=== PATIENT | female | born 1985 | race Caucasian/White ===

== ENCOUNTER 2017-01-28 12:11 | Observation (INO) ==
--- NOTE | 2017-01-28 12:41 | Emergency Department Note ---
Disposition Clinical Impression: Syncope Qualifiers: Syncope type: unspecified Qualified Code(s): R55 - Syncope and collapse Disposition: Admitted As Inpatient Condition: Fair Referrals: Jaycee Rios ELECTRIC MOTOR REPAIR SUPERVISOR [Primary Care Provider] - Forms: ED Satisfaction Letter Time of Disposition: 14:05 Neuro HPI - General Chief Complaint: ED Neuro Symptoms/Deficit Stated Complaint: Slurred speech, R side facial droop Time Seen by Provider: 01/28/17 12:22 Source: patient Mode of arrival: ambulatory Limitations: no limitations Nursing Notes Reviewed: Yes Vital Signs Reviewed: Yes - History of Present Illness HPI Narrative: 31-year-old female who comes in states over the last 2 weeks she's had several episodes of syncope. She's had some intermittent right sided facial weakness and has had some unstable gait. She states that she's had some slurring of her speech intermittently also. Onset of Symptoms Date: 01/14/17 Onset of Symptoms Time: 09:00 Location: speech, right face Severity: now resolved Quality: weakness Symptoms Improving: Yes Context: other (Intermittent symptoms) Associated symptoms: Reports: denies other symptoms Treatments Prior to Arrival: none - Related Data Allergies/Adverse Reactions: Allergies Allergy/AdvReac Type Severity Reaction Status Date / Time aspirin AdvReac See Verified 06/25/16 09:33 Comments ibuprofen AdvReac See Verified 06/25/16 09:33 Comments All systems ED: reviewed and negative except as stated. Constitutional: Denies: fever, chills, weakness, weight change Eyes: Denies: eye pain, eye discharge, vision change ENT ED: Denies: ear pain, throat pain, dental pain, hearing loss, epistaxis, congestion, dysphagia Cardiovascular: Denies: chest pain, palpitations, dyspnea on exertion, edema, syncope Respiratory: Denies: cough, dyspnea, wheezes, hemoptysis, stridor Gastrointestinal: Denies: abdominal pain, nausea, vomiting, diarrhea, constipation, hematemesis, melena, hematochezia Genitourinary: Denies: dysuria, frequency, hematuria, discharge Musculoskeletal: Denies: back pain, neck pain, arthralgia, myalgia Integumentary: Denies: rash, abrasion, lesions Neurological: Reports: weakness, abnormal gait. Denies: headache, numbness, paresthesias, confusion, vertigo Psychiatric: Denies: anxiety, depression, suicidal thoughts, homicidal thoughts , auditory hallucinations, visual hallucinations Endocrine: Denies: fatigue Hematological/Lymphatic: Denies: easy bleeding, easy bruising Allergic/Immunologic: Denies: facial swelling, urticaria Past Medical History - Past Medical History Medical history: Reports: asthma Psychiatric history: Reports: anxiety, PTSD - Social History Smoking Status: Current every day smoker Smokeless Tobacco Status: No Alcohol use: Reports: rarely Drug use: Reports: none Physical Exam - General Limitations: no limitations General appearance: alert, in no apparent distress - Head Head exam: atraumatic, normocephalic, normal inspection - Eye Eye exam: Present: normal appearance, PERRL, EOMI - ENT ENT exam: normal exam, normal oropharynx, mucous membranes moist - Neck Neck exam: Present: normal inspection, full ROM, trachea midline - Respiratory Respiratory exam: Present: normal lung sounds bilaterally - Cardiovascular Cardiovascular exam: Present: regular rate, normal rhythm, normal heart sounds - Abdominal Exam Abdominal exam: Present: soft, Non-Tender. Absent: tenderness, distention, guarding, rebound, rigidity - Extremities Exam Extremities exam: Present: normal inspection, full ROM. Absent: tenderness, pedal edema - Expanded Lower Extremity Exam Neurovascular/Tendon exam: Absent: motor deficit, sensory deficit, tendon deficit Gait: observed and normal - Back Exam Back exam: Present: normal inspection, full ROM. Absent: tenderness - Neurological Exam Neurological exam: Present: alert, oriented X3 - Psychiatric Psychiatric exam: Present: normal affect, normal mood - Skin Skin exam: Present: warm, dry, intact, normal color Course - Reevaluation(s) Reevaluation #1: 31-year-old with episodes of syncope versus seizure, approximately 10 episodes in the last couple of weeks. Patient saw her family doctor today and he sent her in for evaluation. Has had intermittent facial numbness and weakness. Time: 14:05 - Consultations Consultation #1: Discussed with manjit Jimenez. Time: 14:03 Vital Signs Temperature 97.6 F 01/28/17 12:12 Pulse Rate 89 01/28/17 12:12 Respiratory Rate 16 01/28/17 12:12 Blood Pressure 134/91 01/28/17 12:12 O2 Sat by Pulse Oximetry 98 01/28/17 12:12 Temperature 97.6 F 01/28/17 12:12 Pulse Rate 75 01/28/17 13:07 Respiratory Rate 16 01/28/17 13:07 Blood Pressure 108/68 01/28/17 13:07 O2 Sat by Pulse Oximetry 98 01/28/17 13:07 Oxygen Delivery Oxygen Delivery Room Air Neuro Symptoms/Deficit - Lab Data Lab results reviewed: Yes I reviewed the patient's lab results. Result diagrams: 01/28/17 12:34 01/28/17 12:34 Lab Results 01/28/17 01/28/17 01/28/17 Range/Units 12:19 12:34 12:34 WBC 7.8 (4.3-11.1) K/mcL RBC 4.32 (3.82-4.97) M/mcL Hgb 13.6 (11.5-15.4) g/dL Hct 40.9 (35.3-44.9) % MCV 94.7 (83.0-100.0) fL MCH 31.5 (28.0-33.3) pg MCHC 33.3 (31.6-35.5) g/dL RDW 14.0 (11.5-14.5) % Plt Count 237 (140-400) K/mcL MPV 10.1 (9.4-12.4) fL Immature Gran % 0.4 (0-4) % Seg Neutrophils % 52.5 % Lymphocytes % 39.5 % Monocytes % 5.7 % Eosinophils % 1.5 % Basophils % 0.4 % Neutrophils # 4.1 (1.6-8.9) K/mcL Lymphocytes # 3.1 (0.6-4.6) K/mcL Monocytes # 0.5 (0.0-1.3) K/mcL Eosinophils # 0.1 (0.0-0.6) K/mcL Basophils # 0.0 (0.0-0.2) K/mcL PT 11.0 (9.4-12.1) Seconds INR 1.0 APTT 31.7 (26.0-36.0) Seconds Sodium (136-145) mEq/L Potassium (3.5-4.5) mEq/L Chloride (98-109) mEq/L Carbon Dioxide (19-29) mEq/L BUN (7-20) mg/dL Creatinine (0.57-1.11) mg/dL Est GFR ( Amer) (> 60) Est GFR (Non-Af Amer) (> 60) BUN/Creatinine Ratio (6-26) Glucose (70-99) mg/dL POC Glucose 71 (58-89) Calculated Osmolality (280-300) Calcium (8.6-10.8) mg/dL Troponin I (0-0.03) ng/mL 01/28/17 01/28/17 Range/Units 12:34 12:34 WBC (4.3-11.1) K/mcL RBC (3.82-4.97) M/mcL Hgb (11.5-15.4) g/dL Hct (35.3-44.9) % MCV (83.0-100.0) fL MCH (28.0-33.3) pg MCHC (31.6-35.5) g/dL RDW (11.5-14.5) % Plt Count (140-400) K/mcL MPV (9.4-12.4) fL Immature Gran % (0-4) % Seg Neutrophils % % Lymphocytes % % Monocytes % % Eosinophils % % Basophils % % Neutrophils # (1.6-8.9) K/mcL Lymphocytes # (0.6-4.6) K/mcL Monocytes # (0.0-1.3) K/mcL Eosinophils # (0.0-0.6) K/mcL Basophils # (0.0-0.2) K/mcL PT (9.4-12.1) Seconds INR APTT (26.0-36.0) Seconds Sodium 142 (136-145) mEq/L Potassium 4.4 (3.5-4.5) mEq/L Chloride 108 (98-109) mEq/L Carbon Dioxide 24 (19-29) mEq/L BUN 12 (7-20) mg/dL Creatinine 0.68 (0.57-1.11) mg/dL Est GFR ( Amer) > 60 (> 60) Est GFR (Non-Af Amer) > 60 (> 60) BUN/Creatinine Ratio 18 (6-26) Glucose 85 (70-99) mg/dL POC Glucose (58-89) Calculated Osmolality 293 (280-300) Calcium 8.9 (8.6-10.8) mg/dL Troponin I 0.00 (0-0.03) ng/mL - Radiology Data Radiology results reviewed: Yes I reviewed the patient's radiology results. Chest X-Ray 01/28/17 12:32 IMPRESSION: 1. No acute radiographic finding in the chest. D/ / Carmelo Jackson MD / Carmelo Jackson MD Interpreting Provider: Carmelo Jackson MD Head CT 01/28/17 12:32 IMPRESSION: No acute intracranial abnormality. D/ / Isa Fink MD / Isa Fink MD Interpreting Provider: Isa Fink MD - EKG Data EKG attestation: Yes I reviewed and interpreted this EKG. EKG shows normal: sinus rhythm Rate: normal Rhythm: NSR Interpretation: no acute changes NIH Stroke Scale - Level of Consciousness LOC: Alert - LOC Questions LOC Questions: Answers both correctly - LOC Commands LOC Commands: Performs both correctly - Best Gaze Best Gaze: Normal - Visual Visual: No visual loss - Facial Palsy Facial Palsy: Normal - Motor Arms Motor Arm-Left: No drift for 10 seconds Motor Arm-Right: No drift for 10 seconds - Motor Legs Motor Leg-Left: No drift for 5 seconds Motor Leg-Right: No drift for 5 seconds - Limb Ataxia Limb Ataxia: Normal, No Ataxia - Sensory Sensory: Normal - Best Language Best Language: No aphasia - Dysarthria Dysarthria: Normal - Extinction and Inattention Extinction and Inattention: Normal - NIHSS Total Score NIHSS Total Score: 0 TPA Checklist - Eligibilty for IV tPA 1. LKW equal to or less than 4.5 hours be before treatment: No - LKW: 3-4.5 hrs Add. Contraindications Patient/family understanding: The patient/family members have been counseled and understood the risk, benefit , and alternatives of treatment.
[2017-01-28 12:49] LABS: Basophils % 0.4 %; Eosinophils # 0.1 K/mcL (0.0-0.6); Eosinophils % 1.5 %; Hematocrit 40.9 % (35.3-44.9); Hemoglobin 13.6 g/dL (11.5-15.4); Immature Granulocytes % 0.4 % (0-4); Lymphocytes # 3.1 K/mcL (0.6-4.6); Lymphocytes % 39.5 %; Mean Corpuscular HGB Conc 33.3 g/dL (31.6-35.5); Mean Corpuscular Hemoglobin 31.5 pg (28.0-33.3); Mean Corpuscular Volume 94.7 fL (83.0-100.0); Mean Platelet Volume 10.1 fL (9.4-12.4); Monocytes # 0.5 K/mcL (0.0-1.3); Monocytes % 5.7 %; Neutrophils # 4.1 K/mcL (1.6-8.9); Platelet Count 237 K/mcL (140-400); Red Blood Count 4.32 M/mcL (3.82-4.97); Segmented Neutrophils % 52.5 %
[2017-01-28 12:51] LABS: Activated Partial Thrombo Time 31.7 Seconds (26.0-36.0)
[2017-01-28 12:58] LABS: BUN/Creatinine Ratio 18 (6-26); Blood Urea Nitrogen 12 mg/dL (7-20); Calcium 8.9 mg/dL (8.6-10.8); Carbon Dioxide 24 mEq/L (19-29); Chloride 108 mEq/L (98-109); Glucose 85 mg/dL (70-99); Osmolality,Calculated 293 (280-300); Potassium 4.4 mEq/L (3.5-4.5); Sodium 142 mEq/L (136-145); eGFR For African Americans > 60 (> 60); eGFR For Non-African Americans > 60 (> 60)
--- NOTE | 2017-01-28 14:59 | Internal Med History&Physical ---
<Luna Andrews Santa - Last Filed: 01/28/17 14:54> Date of Encounter: 01/28/17 Time of Encounter: 14:30 Assessment and Plan (1) Syncope Current visit: Yes Status: Acute Patient reports 2 week history of right facial droop, right facial numbness, "black spots in my memory", slurred speech daily, right chest tightness, shortness of breath, and right arm pain daily. Patient states that she normally has the above-mentioned symptoms along with a headache prior to syncopal episode. Patient states that she was recently admitted to [facility] in [facility] for 3 days. She is unsure of what her diagnosis was, however her boyfriend states that it had something to do with a seizure. She says that she was not placed on any new medications and did not have a follow-up appointment. Both head CT and chest x-ray from the emergency department are negative for any acute findings. All of her labs are within normal limits. Her EKG in the emergency department is normal sinus rhythm with a rate of 80. No signs of ischemia. Patient states that she had an echocardiogram at her recent admission and [facility]. I have requested records be obtained by the ER decontamination technician. [employer] labs in the morning Vital signs every shift Up with assist Neuro checks MRI Carotid Dopplers in the morning Review records from [facility]. Qualifiers: Syncope type: unspecified Qualified Code(s): R55 - Syncope and collapse (2) PTSD (post-traumatic stress disorder) Current visit: Yes Status: Chronic Chronic. Continue medications. (3) Anxiety Current visit: Yes Status: Chronic Chronic. Continue Klonopin and Prozac. (4) Depression Current visit: Yes Status: Chronic Chronic. Continue Klonopin and Prozac. Qualifiers: Depression Type: unspecified Qualified Code(s): F32.9 - Major depressive disorder, single episode, unspecified (5) Chest pain Current visit: Yes Status: Acute Patient reports that she has right chest tightness, shortness of breath, radiation to the right arm for the last 2 weeks. She says that this is all accompanied by the neurological symptoms that she is having about and headaches. She was admitted to [facility] recently and had an echocardiogram. We are waiting on results to be obtained from [facility]. He also reports that she had [place] [facility] 5 [place]. She said during the test she had 8/10 chest pressure and had an LHC at the same time. She did not have any stents. EKG is normal sinus rhythm without signs of ischemia. Rate is 80. She denies chest pain currently. S1-S2, regular rate and rhythm. No peripheral edema. Troponin was negative in the ER. Telemetry Echo results from [facility] symptoms Qualifiers: Chest pain type: unspecified Qualified Code(s): R07.9 - Chest pain, unspecified (6) Morbid obesity Current visit: Yes Status: Chronic Lifestyle changes. Chronic Qualifiers: Obesity type: due to excess calories Qualified Code(s): E66.01 - Morbid ( severe) obesity due to excess calories (7) Dizziness Current visit: Yes Status: Acute Patient reports 2 week history of dizziness along with the above-mentioned chest pain, headache, and neurological symptoms. Plan as above (8) Headache Current visit: Yes Status: Acute Patient reports that she has headaches about every 3-4 days, depending on her stress. She says that she has left posterior neck pain, radiates up over the top of her head to the frontal area. She said after this she begins having the right facial droop, right facial numbness, memory lapses, and slurred speech. She is neurologically intact. Pupils equal reactive round, grasps are equal, facial movement is symmetrical, strength against resistance is strong and normal. This is most likely an atypical migraine. She denies nausea or vomiting or vision changes with this. Patient had a head CT in the emergency department was negative. Neuro checks MRI in the morning Monitor labs Monitor vital signs Symptomatic treatment. Qualifiers: Headache type: unspecified Headache chronicity pattern: acute headache Intractability: not intractable Qualified Code(s): R51 - Headache (9) DVT prophylaxis Current visit: Yes Status: Acute Lovenox subcutaneous Internal Medicine - H&P: HPI Chief complaint: syncope Admitted From: Home Plans for Post Hospital Care: Home History of present illness: Ms. Peng is a 31 year old female with history of anxiety and depression, PTSD , prior LHC. She presents to the emergency department today with complaint of right facial droop, right facial numbness, "black spots in my memory", left posterior neck pain with headache, slurred speech, dizziness, right chest tightness, shortness of breath, and right arm pain for the last 2 weeks. She was seen at [facility] and admitted for 3 days for these symptoms. She is unsure of what her diagnosis was, however, she says her boyfriend says that it had to do with seizures. She states that she was not put on any new medications and was not instructed to follow-up with anyone. She does take Klonopin and Prozac daily. She is stable at this time and asymptomatic. She is neurologically intact and her speech is clear. Past Med Surg Social Fam HX - Past Medical History Medical history: asthma Psychiatric history: anxiety, PTSD - Social History Smoking Status: Current every day smoker Packs per day: 0.5 Smokeless Tobacco Status: No Alcohol use: rarely Drug use: none Activity Level: Independent ambulation Recent Out of Country Travel Within the Last 8 Weeks: No Exposure or Possible Exposure to Illness During Travel: No Internal Medicine - H&P: Meds FLUoxetine HCl [Prozac] 80 mg PO DAILY 01/28/17 [History] Melatonin [Melatin] 3 mg PO HS 01/28/17 [History] clonazePAM [Klonopin] 1 tab PO TID 01/28/17 [History] Allergies aspirin Adverse Reaction (Verified 01/28/17 14:22) Difficulty Breathing ibuprofen Adverse Reaction (Verified 01/28/17 14:22) Difficulty Breathing All Systems PM: A 10-system review of systems was performed and is negative for pertinent findings except as documented above in the HPI. - Constitutional Constitutional: no chills, no fever(s) - EENT Eyes: no change in vision, no loss of vision, no photophobia, no spots in vision - Cardiovascular Cardiovascular ROS IM: chest pain, dyspnea, lightheadedness, syncope - Respiratory Respiratory: dyspnea, no chest congestion, no pain with cough - Gastrointestinal Gastrointestinal: nausea, no abdominal pain, no change in bowel habits, no diarrhea, no vomiting - Genitourinary Genitourinary: no dysuria, no urinary frequency, no urinary urgency - Musculoskeletal Musculoskeletal ROS IM: neck pain, numbness, tingling - Integumentary Integumentary IM: no rash - Neurological Neurological ROS: dizziness, headache(s), memory loss - Psychiatric Psychiatric: anxiety, depression, no homicidal ideation, no suicidal ideation - Constitutional Vitals: Temp Pulse Resp BP Pulse Ox 97.6 F 64 16 109/80 98 01/28/17 12:12 01/28/17 14:14 01/28/17 14:14 01/28/17 14:14 01/28/17 14:14 General appearance: Present: A&O X 3, morbidly obese, pleasant, answers questions appropriately - Head Head exam: Present: normal inspection - Eye Eye exam: Present: normal appearance, PERRL, conjuntiva pink. Absent: nystagmus - ENT ENT exam: Present: mucous membranes moist, normal exam, normal external ear exam - Neck Neck exam general surgery: Present: normal inspection. Absent: lymphadenopathy , tenderness - Respiratory Respiratory exam: Present: CTAB. Absent: chest wall tenderness, rales, respiratory distress, rhonchi, wheezes - Cardiovascular Cardiovascular exam: Present: RRR, +S1, +S2. Absent: diastolic murmur, systolic murmur - GI/Abdominal GI/Abdominal exam: Present: distended, normal bowel sounds, soft. Absent: hepatomegaly, tenderness - Extremities Exam Extremities exam: Present: normal capillary refill, normal inspection, warm, radial pulses palpable and symetrical. Absent: pedal edema, tenderness - Neurological Exam Neurological exam: Present: alert, oriented X3, no focal deficits, strengths equal and symetr throughout. Absent: pronater drift, facial droop, speech deficit Internal Med - H&P Results - Labs CBC & Chem 7: 01/28/17 12:34 01/28/17 12:34 Labs: Short CBC 01/28/17 Range/Units 12:34 WBC 7.8 (4.3-11.1) K/mcL Hgb 13.6 (11.5-15.4) g/dL Hct 40.9 (35.3-44.9) % Plt Count 237 (140-400) K/mcL Neutrophils # 4.1 (1.6-8.9) K/mcL BMP 01/28/17 12:34 Sodium 142 Potassium 4.4 Chloride 108 Carbon Dioxide 24 BUN 12 Creatinine 0.68 Glucose 85 Calcium 8.9 Cardiac Enzymes 01/28/17 Range/Units 12:34 Troponin I 0.00 (0-0.03) ng/mL - EKG Data -: EKG Interpreted by Myself EKG shows normal: sinus rhythm Rate: normal - EKG Data Prior EKG available for review: no Interpretation IM: normal EKG EKG comments: 01/28/17 15:10 Rate 80, UT int 152, QRS 98, QTc 415 - Impressions ITS Impressions Chest X-Ray 01/28/17 12:32 IMPRESSION: 1. No acute radiographic finding in the chest. D/ / Carmelo Jackson MD / Carmelo Jackson MD Interpreting Provider: Carmelo Jackson MD Head CT 01/28/17 12:32 IMPRESSION: No acute intracranial abnormality. D/ / Isa Fink MD / Isa Fink MD Interpreting Provider: Isa Fink MD <Natacha Rogers - Last Filed: 01/28/17 17:39> Date of Encounter: 01/28/17 Time of Encounter: 16:30 Internal Medicine - H&P: HPI History of present illness: Ms. Peng is a 31 year old female All Systems PM: A 10-system review of systems was performed and is negative for pertinent findings except as documented above in the HPI. - Constitutional Vitals: Temp Pulse Resp BP Pulse Ox 98.2 F 70 16 111/77 97 01/28/17 16:34 01/28/17 16:34 01/28/17 16:34 01/28/17 16:34 01/28/17 16:34 Internal Med - H&P Results - Labs CBC & Chem 7: 01/28/17 12:34 01/28/17 12:34 - Impressions ITS Impressions Brain MRI 01/28/17 15:18 IMPRESSION: 1. No acute intracranial abnormality. 2. Incidental small right frontal arachnoid cyst. D/ / Rashawn Bermeo MD / Rashawn Bermeo MD Interpreting Provider: Rashawn Bermeo MD - Attending Attestation I examined this patient and my medical decision-making was reviewed with the nurse practitioner. I agree with the documented history of present illness, review of systems, past medical, surgical social and family histories and examination findings, disposition and treatment plan as described above except to any changes set forth below. 31-year-old female patient with history of PTSD, anxiety and depression, obesity presented to the ER with multiple episodes of syncope, right-sided facial droop, numbness and slurred speech. She had been sent to the ER by her primary care provider as she had been having slurred speech in the clinic. She had been admitted at [facility] recently where she underwent evaluation for similar symptoms with a 2-D echocardiogram and CT scan of the head. She was advised to follow-up with neurology for further management at that time. She has not been able to make an appointment yet. She says over the past week she has had about 10 episodes of syncope. Episodes last from 5 minutes to half an hour. She has some vision changes and black spots in her visual hernandez prior to onset of her symptoms along with lightheadedness. Her right-sided facial droop, numbness and slurred speech have now resolved. On examination, patient is awake and alert. Heart sounds and lung sounds are within normal limits. Neurologic examination shows no focal weakness or numbness. Normal cranial nerves. CT scan of the head shows no acute stroke or bleed. Syncope: Recurrent episodes. We will check orthostatics. Will do carotid Dopplers. Get MRI of the brain. Neuro checks. Will obtain records from [facility]. For her anxiety depression and posttraumatic stress disorder Will continue her usual medications. Morbid obesity This document has been at least partially created by [employer] recognition technology by Dr. Rogers. Errors in grammar, wording or other phrases may exist. If errors are found after the documentation is signed, they will be addressed individually in the addendum section of this document when appropriate.
[2017-01-28] MEDS ORDERED: Acetaminophen 325 MG TABLET PO PRN (15:22)
[2017-01-28] MEDS ORDERED: Naloxone 0.4 MG/ML INJ IVP PRN (15:22)
[2017-01-28] MEDS ORDERED: Ondansetron 4 MG/2 ML VIAL IVP PRN (15:22)
[2017-01-28] MEDS ORDERED: clonazePAM 1 MG TABLET PO SCH (21:00)
[2017-01-28] MEDS ORDERED: Melatonin 3 MG TABLET PO SCH (21:00)
--- NOTE | 2017-01-28 21:59 | Carotid Imaging Report ---
Carotid Duplex Patient Name:Marcela Peng Order Number:[id number] Procedure Date:01/28/2017 Date:1985Age:31 yrs Gender:Female Lt BP:109 / 80 mmHg Rt.BP:108 / 68 mmHgHeart Rate: Location:[facility] Room #: 3A43 Partition Assembly Machine Operator:Hannah Urena Referring MD:Luna Andrews ELECTRONIC SCALE ASSEMBLER AND TESTER paper sealer:Jaycee Rios, ELECTRONIC SCALE ASSEMBLER AND TESTER Reading MD:Sourav Page MD , FACS Primary Indications:Syncopal episodes Risk Factors Yes/No Smoking Current Yes Impressions: Findings: Bilateral carotid systems are essentially normal. Recommendations: After imaging the patient returned to their room. Findings Carotid Duplex: Left: There is nonstenotic plaque in the left bifurcation. Prior Study: No prior study available for comparison. Carotid Results Right PSV EDV Assessment Proximal CCA 78 23 Normal Mid CCA 81 31 Normal Distal CCA 71 29 Normal Bifurcation 65 20 Normal Proximal ICA 91 31 Normal Mid ICA 70 35 Normal Distal ICA 89 42 Normal ECA 77 21 Normal Vertebral Artery 50 24 Normal Left PSV EDV Assessment Proximal CCA 105 30 Normal Mid CCA 91 28 Normal Distal CCA 84 34 Normal Bifurcation 77 29 Non Stenotic Plaque Proximal ICA 86 24 Normal Mid ICA 84 28 Normal Distal ICA 75 23 Normal ECA 83 15 Normal Vertebral Artery 21 4 Normal Ratio's Right ICA/CCA Ratio: 1.12 ICA/CCA Values: 91/81 Left ICA/CCA Ratio: 0.92 ICA/CCA Values: 84/91 Updated by Sourav Page MD, FACS on 01/28/2017 9:53:13 PM Sourav Page MD electronically signed on 01/28/2017 9:53:52 PM with status of Final
[2017-01-28] MEDS: clonazePAM 1 MG TABLET PO SCH (22:00)
[2017-01-28 22:25] LABS: Amphetamine Screen,Urine Negative ng/mL (Cutoff=1000); Barbiturate Screen,Urine Negative ng/mL (Cutoff=200); Benzodiazepines Screen,Urine Positive ng/mL (Cutoff=200); Cannabinoid Screen,Urine Positive ng/mL (Cutoff = 50); Cocaine Screen,Urine Negative ng/mL (Cutoff= 300); Opiate Screen,Urine Negative ng/mL (Cutoff=300); Phencyclidine Screen,Urine Negative ng/mL (Cutoff=25)
[2017-01-29 05:17] LABS: Basophils % 0.3 %; Eosinophils # 0.2 K/mcL (0.0-0.6); Eosinophils % 1.9 %; Hematocrit 35.6 % (35.3-44.9); Immature Granulocytes % 0.3 % (0-4); Lymphocytes # 3.8 K/mcL (0.6-4.6); Lymphocytes % 47.5 %; Mean Corpuscular HGB Conc 33.1 g/dL (31.6-35.5); Mean Corpuscular Hemoglobin 31.3 pg (28.0-33.3); Mean Corpuscular Volume 94.4 fL (83.0-100.0); Mean Platelet Volume 10.4 fL (9.4-12.4); Monocytes # 0.5 K/mcL (0.0-1.3); Neutrophils # 3.5 K/mcL (1.6-8.9); Platelet Count 220 K/mcL (140-400); Red Blood Count 3.77 M/mcL (3.82-4.97)
[2017-01-29 05:18] LABS: Hemoglobin 11.8 g/dL (11.5-15.4)
[2017-01-29 05:25] LABS: BUN/Creatinine Ratio 20 (6-26); Blood Urea Nitrogen 13 mg/dL (7-20); Calcium 8.1 mg/dL (8.6-10.8); Carbon Dioxide 25 mEq/L (19-29); Chloride 109 mEq/L (98-109); Glucose 102 mg/dL (70-99); Osmolality,Calculated 290 (280-300); Sodium 140 mEq/L (136-145); eGFR For African Americans > 60 (> 60); eGFR For Non-African Americans > 60 (> 60)
[2017-01-29] MEDS: clonazePAM 1 MG TABLET PO SCH ×2 (08:51→14:52)
[2017-01-29] MEDS ORDERED: FLUoxetine 20 MG CAPSULE PO SCH (09:00)
--- NOTE | 2017-01-29 14:01 | Discharge Summary ---
Date of Encounter: 01/29/17 Time of Encounter: 11:00 - Discharge Diagnosis (1) Syncope Priority: Primary Status: Acute Comments: Patient reports approximately two-week history of right facial droop, right facial numbness, memory lapses, slurred speech, right chest tightness, shortness of breath, right arm pain. She says that she normally has the above- mentioned symptoms along with a headache prior to when she has a syncopal episode. She states that she was recently admitted to [facility] for 3 days. We did receive the paperwork from [facility] and I am unable to find exactly how many days she was admitted. At that time she was discharged home with seizure precautions and told not to drive swim and not to take a bath. She was to follow-up with her primary care physician in 3-5 days and follow-up with neurology in 1-2 weeks. She was discharged apparently on Tuesday, January 11. She said that she did not receive a phone call from anyone at [facility] to schedule an appointment so she has never followed up. Her head CT here is negative for any intracranial abnormality acutely, but there is an incidental small right frontal arachnoid cyst. The ventricles and sulci are normal in size and configuration and the sellar/suprasellar regions appear unremarkable. Patient has been symptom-free since I admitted her yesterday in the emergency department. She does not have a headache, any of the facial drooping or facial numbness, no slurred speech no chest pain no shortness of breath and no headache. Patient will be sent home and is to follow-up with either [place] [facility] or neurology at [facility]. She has been referred to both. The 3 a escrow secretary did make a Web referral for patient to be called for neurology appointment. Qualifiers: Syncope type: unspecified Qualified Code(s): R55 - Syncope and collapse (2) PTSD (post-traumatic stress disorder) Priority: Secondary Status: Chronic Comments: Chronic. Continue normal medications. (3) Anxiety Priority: Secondary Status: Chronic Comments: Chronic. Continue home medications. (4) Depression Priority: Secondary Status: Chronic Comments: Chronic. Continue home medications. Qualifiers: Depression Type: unspecified Qualified Code(s): F32.9 - Major depressive disorder, single episode, unspecified (5) Chest pain Priority: Secondary Status: Acute Comments: Patient reports that she has right chest tightness, shortness of breath and radiation to the right arm intermittently for the last 2 weeks. The symptoms accompanied the neurological symptoms that she is having along with the headaches. She was admitted to [facility] and had an echo I did not see the results in the packet. She also reports that she had a stress test at [facility] about 5 years ago she said during the test she had 8 out of 10 chest pain and had to have a left heart catheter at that time. She did not have any stents. I feel that this is all related to her anxiety. EKG was normal sinus rhythm without a signs of ischemia rate was 80. She has denied chest pain since arrival in the emergency department. She has S1-S2 with regular rate and rhythm with no bradycardia, tachycardia, gallops clicks or murmurs. She has no peripheral edema her troponin was negative in the emergency department. Her monitor has been normal sinus rhythm. She was told to follow up with her primary care physician when she was at [facility] on January 11, she did not follow up yet. Again the suggestion is made that she follow-up with primary care within the next few days. Qualifiers: Chest pain type: unspecified Qualified Code(s): R07.9 - Chest pain, unspecified (6) Morbid obesity Priority: Secondary Status: Chronic Comments: Chronic. Lifestyle changes. Qualifiers: Obesity type: due to excess calories Qualified Code(s): E66.01 - Morbid ( severe) obesity due to excess calories (7) Dizziness Priority: Secondary Status: Acute Comments: Part of the neurological symptoms that she has been having his dizziness. She does deny since arriving in the emergency department. (8) Headache Priority: Secondary Status: Acute Comments: Patient reports intermittent headache along with all the other neurological symptoms and chest pain. Potentially could be having atypical migraines. She has been referred to neurology at [facility], as well as neurology here. Since it is Tuesday, a web request was entered for neurology to call with an appointment. Qualifiers: Headache type: unspecified Headache chronicity pattern: acute headache Intractability: not intractable Qualified Code(s): R51 - Headache (9) DVT prophylaxis Priority: Secondary Status: Acute Comments: Lovenox subcutaneous. (10) Positive urine drug screen Priority: Secondary Status: Acute Comments: Patient struck screen was positive for marijuana. I discussed with her not using marijuana and taking Klonopin together. She verbalized understanding. - Discharge Medications Home Medications: FLUoxetine HCl [Prozac] 80 mg PO DAILY 01/28/17 [History] Melatonin [Melatin] 3 mg PO HS 01/28/17 [History] clonazePAM [Klonopin] 1 tab PO TID 01/28/17 [History] Allergies/Adverse Reactions: Allergies aspirin Adverse Reaction (Verified 01/28/17 14:22) Difficulty Breathing ibuprofen Adverse Reaction (Verified 01/28/17 14:22) Difficulty Breathing Procedures/tests Complete & Pending: Procedures Performed prior 72 hours Category Date Time Status MR head/brain wo con [MR] Routine MRI 01/28/17 15:18 Completed EV carotid duplex imaging BI Routine Y 01/28/17 15:18 Completed Date of admission: 01/28/17 15:11 Primary care physician: Jaycee Rios CNP Discharging clinician: Luna Andrews Anticipated date of discharge: 01/29/17 - Patient Status Disposition: Home, Self-Care Condition: Good Functional capacity at discharge: independent ambulation Overall status at discharge: patient is back to baseline - Discharge Instructions Follow Up With: Jaycee Rios CNP [Primary Care Provider] - Additional Instructions: Please follow up with your primary care provider in the next 3-5 days. If you do not have a provider, we will give you a phone number to attempt to establish care with an [facility] provider. Please follow up with either Dr. Matute or [facility] for a follow up evaluation. We have requested that [facility] calls you to make an appointment. Please make sure that we have a working phone number for you. Return to the ER as needed for any problems or concerns or worsening condition. Take your home medications as your normally would. - Diet and Activity Activity: resume usual activities as tolerated Diet: advance to your usual diet Interval History: Patient reports 2 week history of neurological symptoms and chest pain. Primarily reports facial droop, facial numbness, slurred speech, chest pain, headache. Patient states she has had a syncopal episode as well. She was seen at [facility] for same diagnosis was seizure disorder versus anxiety. At that time she was discharged for home and was told no driving, no swimming, no bathtubs. She was to follow with primary care in 3-5 days and neurology in 1-[address] Matute. She was discharged on January 11 and has not followed up with anyone as of yet. Returned here for continuing symptoms, although she has been symptom-free since she arrived in the emergency department. Physical exam was unremarkable. Head CT shows an incidental finding of a small arachnoid cyst. Ventricles and sulci are normal in size and configuration and the sellar/suprasellar regions appear unremarkable. Carotid studies were also essentially normal, there is nonstenotic plaque in the left bifurcation. No other findings. Patient's labs are within normal limits. I did speak with her regarding marijuana usage and suggested not taking the Klonopin while she is smoking marijuana. Patient is most likely experiencing some type of atypical migraine and/or anxiety. Patient will follow up outpatient with either Dr. Matute at [facility] or with [facility]. In Web request was entered for neurology to call patient for an appointment. Patient is stable and appropriate for discharge. Hospital course: Ms. Peng is a 31 year old female - Time Spent with Patient Total time spent providing and/or coordinating discharge services: Less than 30 minutes - Constitutional Vitals: Temp Pulse Resp BP Pulse Ox 97.9 F 66 18 113/80 95 01/29/17 11:37 01/29/17 11:37 01/29/17 11:37 01/29/17 11:37 01/29/17 11:37 General appearance: Present: A&O X 3, morbidly obese, pleasant, answers questions appropriately - Head Head exam: Present: normal inspection - Eye Eye exam: Present: EOMI, normal appearance, PERRL, conjuntiva pink. Absent: nystagmus - ENT ENT exam: Present: mucous membranes moist, normal exam, normal external ear exam - Neck Neck exam general surgery: Present: normal inspection. Absent: lymphadenopathy , tenderness - Respiratory Respiratory exam: Present: decreased breath sounds, CTAB. Absent: respiratory distress, rhonchi, wheezes, tachypnea - Cardiovascular Cardiovascular exam: Present: RRR, +S1, +S2. Absent: diastolic murmur, systolic murmur - GI/Abdominal GI/Abdominal exam: Present: distended, hyperactive bowel sounds, normal bowel sounds. Absent: hepatomegaly, tenderness - Extremities Exam Extremities exam: Present: normal capillary refill, warm, radial pulses palpable and symetrical. Absent: mottling, pedal edema, tenderness - Neurological Exam Neurological exam: Present: alert, oriented X3, no focal deficits, strengths equal and symetr throughout. Absent: pronater drift, facial droop, speech deficit
[2017-01-29 14:54] VITALS: BP 125/85
[2017-01-29] MEDS ORDERED: *HR* Enoxaparin 30 MG/0.3 ML SYRINGE SQ SCH (18:00)
--- NOTE | 2017-01-31 18:12 | Electrocardiograph Report ---
[facility] Test Date: 2017-01-28 Pat Name: Marcela Peng Department: 102 Room: 3A43 Gender: F Adolescent Coordinator: Marielena : 1985 Requested By: Aime Wrothington Order Number: [id number] Reading MD: Brendan Ortiz MD Measurements Intervals [place] Rate: 80 P: 54 KS: 152 QRS: 46 QRSD: 98 T: 44 QT: 379 QTc: 415 Interpretive Statements SINUS RHYTHM Electronically Signed On 01-31-2017 18:10:19 EDT by Brendan Ortiz MD
== END 2017-01-29 17:34 | disposition home or self-care (01) ==
LOC: EMEROO 12:11 → 3ANU 12:11 → SUATTDRO 15:11 → 3ANU 15:36
PROVIDERS: ADMIT Registered Nurse; ATTEND Internal Medicine